=== PATIENT | male | born 1960 | race Caucasian/White ===

== ENCOUNTER 2018-06-11 17:12 | Inpatient (IN) | payer BC ==
[~2018-06-11] VITALS: Ht 182.9 cm; Wt 95.8 kg
[2018-06-11 20:00] VITALS: BP 128/81
[2018-06-11] MEDS: LEVOFLOXACIN 500MG/D5W 100ML 100 ML IV SCH (20:45)
[2018-06-11] MEDS: DEXTROSE 5%/0.45% SOD CHL 1,000 ML IV SCH (20:45)
[2018-06-11 21:28] LABS: BASOPHILS # (AUTO) 0.1 (0.0-0.1); BASOPHILS % 1.1 % (0.0-1.0); EOSINOPHILS # (AUTO) 0.3 (0.0-0.4); EOSINOPHILS % 4.4 % (0.0-6.0); HEMATOCRIT 47.8 % (38.2-49.6); HEMOGLOBIN 16.2 g/dL (14.0-18.0); LYMPHOCYTES # (AUTO) 1.8 (1.0-3.2); LYMPHOCYTES % 28.4 % (18.0-39.1); MEAN CORPUSCULAR HEMOGLOBIN 30.8 pg (28-32); MEAN CORPUSCULAR HGB CONC 33.9 g/dL (31-35); MEAN CORPUSCULAR VOLUME 90.9 fL (81-99); MONOCYTES # (AUTO) 0.7 (0.2-0.8); MONOCYTES % 11.5 % (4.4-11.3); NEUTROPHILS # (AUTO) 3.4 (2.1-6.9); PLATELET COUNT 345 x10e3/uL (140-360); RED BLOOD COUNT 5.26 x10e6/uL (4.3-5.7); RED CELL DISTRIBUTION WIDTH 12.6 % (11.7-14.4)
[2018-06-11 21:39] LABS: INR 0.94; PROTHROMBIN TIME 13.4 seconds (11.9-14.5)
[2018-06-11 21:40] LABS: PARTIAL THROMBOPLASTIN TIME 30.9 seconds (23.8-35.5)
[2018-06-11] MEDS: METRONIDAZOLE 500MG/NS 100ML 100 ML IV SCH (21:46)
[2018-06-11 21:48] LABS: ALBUMIN 3.8 g/dL (3.5-5.0); ALBUMIN/GLOBULIN RATIO 1.1 (0.8-2.0); ANION GAP 13.9 mmol/L (8-16); CALCIUM 10.1 mg/dL (8.4-10.2); CREATININE, SERUM 1.5 mg/dL (0.72-1.25); POTASSIUM 3.9 mmol/L (3.5-5.1)
[2018-06-11 23:20] VITALS: BP 112/65
[2018-06-11] MEDS ORDERED: ONDANSETRON HCL INJ 2 MG/ML VIAL IV PRN (23:45)
[2018-06-11] MEDS ORDERED: MORPHINE SULFATE 2 MG/ML SYR IV PRN (23:45)
[2018-06-12] VITALS (7 sets, daily range): BP systolic 100–165; BP diastolic 58–83
[2018-06-12] MEDS: METRONIDAZOLE 500MG/NS 100ML 100 ML IV SCH ×3 (05:50→22:21)
[2018-06-12] MEDS: DEXTROSE 5%/0.45% SOD CHL 1,000 ML IV SCH ×2 (05:50→16:19)
--- NOTE | 2018-06-12 07:28 | Consultation ---
DATE OF CONSULTATION: June 12, 2018 The patient is a 58-year-old male who developed abdominal pain about 4-5 days ago. Says he was home watching television and developed lower abdominal pain. He had recent blepharoplasty. Patient says the pain was in the lower abdomen and he had some feeling of constipation. Took a suppository and had some loose watery bowel movements. Pain persisted. Went to the emergency room and evaluation apparently revealed diverticulitis with microperforation. Patient says the pain is somewhat less. He has never had similar pains in the past. PAST MEDICAL HISTORY: Otherwise unremarkable. He denies chronic medical problems. HOME MEDICATIONS: None. ALLERGIES: NO KNOWN ALLERGIES. PAST SURGICAL HISTORY: Only previous surgery was knee surgery and the recent blepharoplasty. FAMILY HISTORY: Noncontributory. SOCIAL HISTORY: The patient does not smoke cigarettes or drink alcohol. REVIEW OF SYSTEMS: As stated above. He has not had any fever or weight loss. PHYSICAL EXAMINATION GENERAL: The patient is awake, alert and in no distress. VITALS: Normal. He is afebrile. He is not tachycardic. HEENT: Unremarkable. Sclerae are nonicteric. NECK: Has no masses. LUNGS: Equal breath sounds are clear bilaterally. CARDIAC: Regular rate and rhythm. Normal S1 and S2 without murmur, S3 or S4. There is no jugular venous distention. ABDOMEN: Tender in the left lower quadrant with localized signs of peritonitis. There is slight distention. There was no mass. There is no organomegaly. EXTREMITIES: Warm. There is no edema. Pulses are palpable. NEUROLOGIC: Intact. LAB TESTS: The white blood cell count is normal. Hemoglobin and hematocrit are normal. Chemistries with slightly elevated creatinine, otherwise normal. ASSESSMENT: A 58-year-old male with findings suggestive of acute diverticulitis with localized signs of peritonitis. At this point, I think the patient would best be treated with antibiotics. Hopefully, his symptoms will resolve without requiring surgery. Thank you for asking me to see Mr. Kasper. Job#: [id number] BIBIA[place]
[2018-06-12] MEDS: FAMOTIDINE 20 MG/2 ML VIAL IV SCH ×2 (09:02→16:37)
[2018-06-12] MEDS: ENOXAPARIN SOD INJ 40 MG/0.4 ML SYR SC SCH (16:37)
[2018-06-12] MEDS: LEVOFLOXACIN 500MG/D5W 100ML 100 ML IV SCH (20:30)
[2018-06-13] VITALS (7 sets, daily range): BP systolic 111–140; BP diastolic 56–94
[2018-06-13] MEDS: DEXTROSE 5%/0.45% SOD CHL 1,000 ML IV SCH ×2 (02:32→14:34)
[2018-06-13 05:33] LABS: BASOPHILS # (AUTO) 0.1 (0.0-0.1); BASOPHILS % 1.6 % (0.0-1.0); EOSINOPHILS # (AUTO) 0.3 (0.0-0.4); EOSINOPHILS % 6.7 % (0.0-6.0); HEMATOCRIT 46.4 % (38.2-49.6); HEMOGLOBIN 15.4 g/dL (14.0-18.0); LYMPHOCYTES # (AUTO) 1.4 (1.0-3.2); LYMPHOCYTES % 31.9 % (18.0-39.1); MEAN CORPUSCULAR HEMOGLOBIN 30.1 pg (28-32); MEAN CORPUSCULAR HGB CONC 33.2 g/dL (31-35); MEAN CORPUSCULAR VOLUME 90.8 fL (81-99); MONOCYTES # (AUTO) 0.6 (0.2-0.8); MONOCYTES % 12.3 % (4.4-11.3); NEUTROPHILS # (AUTO) 2.1 (2.1-6.9); NEUTROPHILS % 46.6 % (38.7-80.0); PLATELET COUNT 317 x10e3/uL (140-360); RED BLOOD COUNT 5.11 x10e6/uL (4.3-5.7); RED CELL DISTRIBUTION WIDTH 12.3 % (11.7-14.4)
[2018-06-13 05:59] LABS: ANION GAP 14.4 mmol/L (8-16); CALCIUM 8.9 mg/dL (8.4-10.2); CREATININE, SERUM 1.48 mg/dL (0.72-1.25); POTASSIUM 4.4 mmol/L (3.5-5.1)
[2018-06-13] MEDS: METRONIDAZOLE 500MG/NS 100ML 100 ML IV SCH ×4 (06:13→22:35)
[2018-06-13] MEDS: FAMOTIDINE 20 MG/2 ML VIAL IV SCH ×2 (09:00→17:41)
[2018-06-13] MEDS ORDERED: MORPHINE SULFATE INJ 4 MG/ML INJ IV PRN (11:00)
[2018-06-13] MEDS: ENOXAPARIN SOD INJ 40 MG/0.4 ML SYR SC SCH (17:41)
[2018-06-13] MEDS: LEVOFLOXACIN 500MG/D5W 100ML 100 ML IV SCH (20:08)
[2018-06-14] VITALS (7 sets, daily range): BP systolic 103–123; BP diastolic 62–76
[2018-06-14] MEDS: DEXTROSE 5%/0.45% SOD CHL 1,000 ML IV SCH ×2 (00:40→08:10)
[2018-06-14] MEDS: METRONIDAZOLE 500MG/NS 100ML 100 ML IV SCH ×2 (05:24→13:44)
[2018-06-14] MEDS: FAMOTIDINE 20 MG/2 ML VIAL IV SCH (08:20)
--- NOTE | 2018-06-14 11:48 | Progress Note ---
DATE: June 14, 2018 SUBJECTIVE: Patient reports significant improvement in abdominal pain. He ate solid food. He has not had any bowel movement so far. He is passing flatus. REVIEW OF SYSTEMS GENERAL: No fever or chills. RESPIRATORY: No cough or expectoration. CVS: No chest pain, palpitation. MEDICATIONS: Reviewed as per MAR, he is on intravenous metronidazole as well as levofloxacin along with other medications. PHYSICAL EXAMINATION VITAL SIGNS: Temperature 97.8, pulse 67, respirations 18, blood pressure 121/76, oxygen saturation 96% on room air. GENERAL: Not in any acute distress. HEENT: Oral mucosa is moist. ABDOMEN: Soft. Mild lower quadrant tenderness on deep palpation without rebound, rigidity, or guarding. Positive bowel sound. LABS: White count has come down to 4.48 from 6.33, hemoglobin 15.4, hematocrit 46.4, platelet count 317. Electrolytes normal. IMPRESSION: Acute diverticulitis with localized microperforation. Currently being treated conservatively. Dr. Ruby (surgeon) is also following the case. He has been allowed oral diet today. PLAN: Continue oral feedings. Patient is on morphine, but without any standing bowel regimen. We will put him on MiraLAX as well as senna with docusate daily as long as he is going to be using morphine. Patient will follow with my associate, Dr. Blackwood, in his clinic once he is discharged. Job#: [id number]
[2018-06-14] MEDS: ENOXAPARIN SOD INJ 40 MG/0.4 ML SYR SC SCH (16:18)
[2018-06-14] MEDS: LEVOFLOXACIN 500MG/D5W 100ML 100 ML IV SCH (20:15)
[2018-06-15] VITALS: BP 115/71
[2018-06-15 04:00] VITALS: BP 93/67
[2018-06-15] MEDS: METRONIDAZOLE 500MG/NS 100ML 100 ML IV SCH (06:11)
[2018-06-15 08:12] VITALS: BP 115/77
[2018-06-15 09:51] VITALS: BP 115/77
[2018-06-15] MEDS ORDERED: LEVAQUIN500 MG PO (12:43)
[2018-06-15] MEDS ORDERED: FLAGYL250 MG (12:43)
--- NOTE | 2018-06-15 13:19 | Discharge Summary ---
PRIMARY CARE DOCTOR: Dr. Bonita Reyes. FINAL DIAGNOSIS: Acute contained micro perforated diverticulitis. SECONDARY DIAGNOSIS: Stage 3 chronic kidney disease, stable. CONSULTANTS 1. Dr. Ruby, surgery. 2. Dr. Blackwood, GI. PROCEDURES/STUDIES PERFORMED: None. HISTORY: Per [facility] HOSPITAL COURSE: Patient had CT scan which shows microperforation. Patient was admitted, was put on IV Levaquin and Flagyl. Initially, he was made n.p.o. Subsequently, his diet was advance and he did well. Initially, he was on IV fluid as well. Patient does have creatinine of 1.5 and remained same after hydration. Patient was informed about this and he will have outpatient followup workup and monitoring. At this time, patient is stable for discharge home. I have discussed with Dr. Ruby. Patient will follow up with Dr. Blackwood in about 3 to 4 weeks for colonoscopy. Subsequently, he will follow up with Dr. Ruby for likely partial bowel resection. Patient was seen and examined today. I took 32 minutes total to discharge this patient. CONDITION ON DISCHARGE: Improved. DISCHARGE MEDICATIONS: Please see medication reconciliation form. GLO EVERETT M.D. Job#: [id number] TITA cc:DR. BONITA REYES
== END 2018-06-15 13:10 | disposition home or self-care (01) | DRG 392 ==
LOC: MED/SURG 19:31
PROVIDERS: ADMIT Internal Medicine; ATTEND Internal Medicine
DX: K57.80 Diverticulitis of intestine, part unspecified, with perforation and abscess without bleeding (principal); N17.9 Acute kidney failure, unspecified; I12.9 Hypertensive chronic kidney disease with stage 1 through stage 4 chronic kidney disease, or unspecified chronic kidney disease; N18.3 Chronic kidney disease, stage 3 (moderate)
CPT/HCPCS: 36415; 80048; 80053; 85025; 85610; 85730; 96360; J1650; J1956

== ENCOUNTER 2018-07-31 10:53 | Inpatient (IN) | payer BC ==
[2018-07-28 13:59] LABS: BASOPHILS # (AUTO) 0.1 (0.0-0.1); BASOPHILS % 1.5 % (0.0-1.0); EOSINOPHILS # (AUTO) 0.5 (0.0-0.4); EOSINOPHILS % 8.4 % (0.0-6.0); HEMATOCRIT 49.9 % (38.2-49.6); HEMOGLOBIN 16.6 g/dL (14.0-18.0); LYMPHOCYTES # (AUTO) 1.9 (1.0-3.2); MEAN CORPUSCULAR HEMOGLOBIN 30.7 pg (28-32); MEAN CORPUSCULAR HGB CONC 33.3 g/dL (31-35); MEAN CORPUSCULAR VOLUME 92.4 fL (81-99); MONOCYTES # (AUTO) 0.6 (0.2-0.8); MONOCYTES % 10.3 % (4.4-11.3); NEUTROPHILS # (AUTO) 2.7 (2.1-6.9); NEUTROPHILS % 46.1 % (38.7-80.0); PLATELET COUNT 248 x10e3/uL (140-360); RED CELL DISTRIBUTION WIDTH 13.2 % (11.7-14.4)
[2018-07-28 14:15] LABS: ANION GAP 13.4 mmol/L (8-16); BLOOD UREA NITROGEN 7 mg/dL (7-26); BUN/CREATININE RATIO 6 (6-25); CALCIUM 8.5 mg/dL (8.4-10.2); CARBON DIOXIDE 30 mmol/L (22-29); CHLORIDE 103 mmol/L (98-107); CREATININE, SERUM 1.23 mg/dL (0.72-1.25); EST GLOMERULAR FILTRATION RATE > 60 ML/MIN (60-); GLUCOSE 92 mg/dL (74-118); POTASSIUM 4.4 mmol/L (3.5-5.1); SODIUM 142 mmol/L (136-145)
[~2018-07-31] VITALS: Ht 182.9 cm; Wt 90.8 kg
[~2018-07-31 10:53] MED LIST: FLAGYL250 MG; LEVAQUIN500 MG PO
[2018-07-31] MEDS ORDERED: CEFOXITIN SOD 1 GM VIAL ONE (11:27)
[2018-07-31] MEDS ORDERED: BUPIVACAINE HCL 0.5% INJ 30 ML VIAL INJ ONE (12:11)
[2018-07-31] MEDS ORDERED: BACITRACIN 50,000 UNIT VIAL ONE (12:11)
[2018-07-31] MEDS ORDERED: ACETAMINOPHEN 1000 MG/100 ML IV PRN (13:45)
[2018-07-31] MEDS ORDERED: HYDROMORPHONE 0.2MG/ML-SOD CHL 30ML PCA SYRINGE IV PRN (13:45)
[2018-07-31] MEDS ORDERED: ONDANSETRON HCL INJ 2 MG/ML VIAL IV PRN (13:45)
[2018-07-31] MEDS ORDERED: DIPHENHYDRAMINE HCL INJ 50 MG/ML VIAL IM PRN (13:45)
[2018-07-31] MEDS ORDERED: KETOROLAC TROMETHAMINE 30 MG/ML VIAL IV PRN (13:45)
[2018-07-31] MEDS ORDERED: NALOXONE HCL INJ 0.4 MG/ML AMP IV PRN (13:45)
[2018-07-31] MEDS ORDERED: HYDROMORPHONE 2MG/ML 2 MG/ML ML ONE (13:58)
[2018-07-31] MEDS ORDERED: HYDROMORPHONE 0.2MG/ML-SOD CHL 30ML PCA SYRINGE IV ONE (14:03)
--- NOTE | 2018-07-31 14:56 | Operative Report ---
DATE OF PROCEDURE: July 31, 2018 PREOPERATIVE DIAGNOSIS: Sigmoid diverticulitis. POSTOPERATIVE DIAGNOSIS: Sigmoid diverticulitis. PROCEDURE PERFORMED: Laparoscopic assisted sigmoid colon resection. HOTEL YARDPERSON: None. ANESTHESIA: General endotracheal. INDICATIONS AND FINDINGS: The patient is a 58-year-old male who was hospitalized a little more than a month ago with severe sigmoid diverticulitis. He had some persistent pain in the area. At surgery patient was found to have an area of inflammation in the mid sigmoid colon with a small amount of purulent fluid around it. The colon proximal and distal to this had some mild diverticulosis but no inflammation. Approximately 20 cm of colon was resected. TECHNIQUE: After adequate general endotracheal anesthesia, patient in supine position, the abdomen was prepped and draped in sterile fashion with [place] solution. Skin just below the umbilicus was infiltrated with 1/2 percent Marcaine. Incision was made. The abdominal wall was elevated, and a Veress needle was introduced. Pneumoperitoneum was then created. A 10 mm trocar and cannula was then passed through this wound. The laparoscopic camera was introduced. Initial laparoscopy revealed inflammatory process involving the mid sigmoid colon. A 5 mm trocar and cannula was placed in the epigastrium, and a 5 mm trocar and cannula was placed in the right lower quadrant. The colon which was adherent to the abdominal wall was freed from the adhesions. There was some purulent fluid around the colon, and it appeared thickened and inflamed. Once this was free, the colon was mobilized by dividing the peritoneal attachments. This was mobilized all the way up to the splenic flexure and the distal colon was mobilized all the way down to the peritoneal reflection until the colon was completely free. The left ureter was identified and preserved. Once the colon was free, an incision was made in the lower midline suprapubically and the peritoneal cavity was entered. The colon was then delivered up into the wound. The area of inflammation easily came up into the wound. The colon distal to this had mild diverticulosis but no inflammation. Approximately 5 cm proximal to the area of inflammation the colon was divided with a MIKO stapler, and the colon distal to this, which was in the distal sigmoid colon, was also divided with a MIKO stapler. Mesentery was then divided with a LigaSure device and the specimen removed. About 20 cm of colon was removed. Anastomosis was then made between the proximal and distal colon with a MIKO stapler and TL-60 stapler. There was no tension on the colon. Hemostasis was seen to be adequate. The colon was then returned to the peritoneal cavity. It was inspected for hemostasis, which was seen to be adequate. The peritoneal cavity was then irrigated with saline. All fluid aspirated. Inspected for hemostasis, which was seen to be adequate. The lower midline fascia was then closed with a running suture of number 1 PDS. Fascia in the umbilical wound was closed with 0 Vicryl. Subcutaneous tissue in each wound was irrigated with saline. Skin to all wounds was closed with vasiliy. A sterile dressing was applied to each wound. The patient tolerated the procedure well. Estimated blood loss was 50 mL. There were no complications. All counts were correct. The patient was taken to the recovery room in satisfactory condition. Job#: [id number] EV cc:Quan ENG MD JOHN D. KIRKWOOD, DO
[2018-07-31 16:48] VITALS: BP 139/84
[2018-07-31] MEDS: DEXTROSE 5%/LACTATED RINGERS 1,000 ML IV SCH ×2 (17:04→21:45)
[2018-07-31] MEDS: CEFOXITIN SODIUM 2 G/VIAL IV SCH (17:04)
[2018-07-31] MEDS ORDERED: CEFOXITIN 2GM/ D5W 50ML 50 ML IV SCH (18:00)
[2018-07-31] MEDS ORDERED: FENTANYL CITRATE/PF 100MCG/2 ML INJ ONE (19:24)
[2018-07-31] MEDS ORDERED: MIDAZOLAM HCL 2 MG/2 ML VIAL ONE (19:24)
[2018-07-31] MEDS ORDERED: LIDOCAINE HCL 2% LOCAL INJ 5 ML SDV VIAL INJ ONE (19:47)
[2018-07-31] MEDS ORDERED: ROCURONIUM BROMIDE 10 MG/ML 5ML VIAL ONE (19:47)
[2018-07-31] MEDS ORDERED: SEVOFLURANE INHAL SOLN 250 ML PEN BTL ONE (19:47)
[2018-07-31] MEDS ORDERED: PROPOFOL IV EMULSION 10 MG/ML 20 ML VIAL ONE (19:47)
[2018-07-31] MEDS ORDERED: GLYCOPYRROLATE INJ 1MG/ 5 ML SYR ONE (19:47)
[2018-07-31] MEDS ORDERED: DEXAMETHASONE SOD PHOS INJ 4 MG/ML VIAL ONE (19:47)
[2018-07-31] MEDS ORDERED: NEOSTIGMINE 5 MG/5ML SYR ONE (19:47)
[2018-07-31] MEDS ORDERED: PHENYLEPHRINE HCL 1% 10 MG/ML VIAL ONE (19:47)
[2018-07-31] MEDS ORDERED: ONDANSETRON HCL INJ 2 MG/ML VIAL ONE (19:47)
[2018-07-31] MEDS ORDERED: ACETAMINOPHEN 1000 MG/100 ML IV ONE (19:47)
[2018-08-01] VITALS (8 sets, daily range): BP systolic 106–145; BP diastolic 59–91
[2018-08-01] MEDS: CEFOXITIN SODIUM 2 G/VIAL IV SCH ×3 (00:30→12:47)
[2018-08-01] MEDS: DEXTROSE 5%/LACTATED RINGERS 1,000 ML IV SCH ×3 (05:44→22:32)
[2018-08-01 05:48] LABS: BASOPHILS % 0.3 % (0.0-1.0); EOSINOPHILS % 0.1 % (0.0-6.0); HEMATOCRIT 45.1 % (38.2-49.6); HEMOGLOBIN 15.1 g/dL (14.0-18.0); LYMPHOCYTES # (AUTO) 1.2 (1.0-3.2); LYMPHOCYTES % 10.7 % (18.0-39.1); MEAN CORPUSCULAR HEMOGLOBIN 30.8 pg (28-32); MEAN CORPUSCULAR HGB CONC 33.5 g/dL (31-35); MEAN CORPUSCULAR VOLUME 91.9 fL (81-99); MONOCYTES # (AUTO) 1.2 (0.2-0.8); MONOCYTES % 10.9 % (4.4-11.3); NEUTROPHILS # (AUTO) 8.8 (2.1-6.9); NEUTROPHILS % 77.6 % (38.7-80.0); PLATELET COUNT 260 x10e3/uL (140-360); RED BLOOD COUNT 4.91 x10e6/uL (4.3-5.7); RED CELL DISTRIBUTION WIDTH 13.3 % (11.7-14.4)
[2018-08-01 06:13] LABS: ANION GAP 13.7 mmol/L (8-16); CREATININE, SERUM 1.27 mg/dL (0.72-1.25); POTASSIUM 4.7 mmol/L (3.5-5.1)
--- NOTE | 2018-08-01 13:12 | Consultation ---
DATE OF CONSULTATION: August 01, 2018 INTERNAL MEDICINE CONSULTATION REASON FOR CONSULTATION: Chronic kidney disease. HISTORY OF PRESENT ILLNESS: This is a 58-year-old male known to me from 2 months ago when he was admitted with perforated sigmoid diverticulitis. Patient did well with IV antibiotics, and now he is postop day 1 for a laparoscopic assisted sigmoidectomy. At that time patient was found to have what was thought to be chronic kidney disease with a GFR of 45 to 50. Currently patient is ambulating, is on a BUGGY RUNNER Dilaudid pump, denies chest pain. No shortness of breath, no nausea, no vomiting. He is passing flatus. PAST MEDICAL AND SURGICAL HISTORY 1. Chronic kidney disease, likely stage 2 or 3. 2. Recent perforated diverticulitis about 2 months ago. 3. No previous internal organ surgery. FAMILY HISTORY: He was adopted. SOCIAL HISTORY: Some social alcohol. ALLERGIES: NONE. MEDICATIONS: Please see medication reconciliation form. PHYSICAL EXAMINATION VITAL SIGNS: Temperature 98.0, pulse 87, respiratory rate 20, blood pressure 111/68. IN GENERAL: No acute distress. SKIN: No rash. HEENT: Oropharynx is clear. Anicteric. NECK: Supple. LUNGS: Clear. HEART: Regular rate and rhythm. Normal S1 and S2. GI: Abdomen soft. Decreased bowel sounds. : Deferred. MUSCULOSKELETAL: Painless range of motion. NEUROLOGICALLY: Alert and oriented x3. Cranial nerves 2-12 intact. PSYCHIATRICALLY: No hallucination. LABORATORY-SHARP: White count 11, hemoglobin 15, platelet count 260. Creatinine 1.27, sodium 135, and GFR is 58. However, his preop creatinine was 1.3 with GFR greater than 60. ASSESSMENT AND PLAN 1. Likely stage 2 to 3 chronic kidney disease, currently at baseline. The patient understands that he will need close monitoring after he is discharged. 2. Postoperative day number 1 for laparoscopic assisted sigmoidectomy. Continue Dilaudid BUGGY RUNNER pump, IV fluid. Patient currently still n.p.o. Will wait for bowel function to return. 3. Gastrointestinal/deep vein thrombosis prophylaxis. Will start Pepcid IV and sequential compression devices only. No chemicals due to recent surgery. Thank you very much for this consultation. Will continue to follow with you. Please call with any questions. Job#: [id number] EV
[2018-08-01] MEDS: FAMOTIDINE 20 MG/2 ML VIAL IV SCH (17:09)
[2018-08-02] VITALS (8 sets, daily range): BP systolic 114–151; BP diastolic 56–88
[2018-08-02 05:49] LABS: HEMATOCRIT 43.8 % (38.2-49.6); HEMOGLOBIN 14.3 g/dL (14.0-18.0); MEAN CORPUSCULAR HEMOGLOBIN 30.8 pg (28-32); MEAN CORPUSCULAR HGB CONC 32.6 g/dL (31-35); MEAN CORPUSCULAR VOLUME 94.2 fL (81-99); PLATELET COUNT 218 x10e3/uL (140-360); RED BLOOD COUNT 4.65 x10e6/uL (4.3-5.7); RED CELL DISTRIBUTION WIDTH 13.4 % (11.7-14.4)
[2018-08-02 06:11] LABS: ANION GAP 11.2 mmol/L (8-16); CALCIUM 7.9 mg/dL (8.4-10.2); CREATININE, SERUM 1.31 mg/dL (0.72-1.25); POTASSIUM 4.2 mmol/L (3.5-5.1)
[2018-08-02] MEDS: DEXTROSE 5%/LACTATED RINGERS 1,000 ML IV SCH ×3 (06:13→23:24)
[2018-08-02 06:53] LABS: EOSINOPHILS % (MANUAL) 2 % (0-7); LYMPHOCYTES % (MANUAL) 32 % (19-48); MONOCYTES % (MANUAL) 1 % (3.4-9.0); NEUTROPHILS % (MANUAL) 65 % (40-74); PLATELET ESTIMATE ADEQUATE; PLATELET MORPHOLOGY COMMENT NORMAL; RBC MORPHOLOGY COMMENT NORMAL
[2018-08-02] MEDS: FAMOTIDINE 20 MG/2 ML VIAL IV SCH (08:55)
[2018-08-02] MEDS: HYDROMORPHONE 0.2MG/ML-SOD CHL 30ML PCA SYRINGE IV PRN ×2 (10:29→22:34)
[2018-08-02] MEDS: ACETAMINOPHEN/CODEINE 300MG - 30MG TAB PO PRN (21:07)
[2018-08-03 00:43] VITALS: BP 123/74
[2018-08-03] MEDS: ACETAMINOPHEN/CODEINE 300MG - 30MG TAB PO PRN (04:40)
[2018-08-03] MEDS: DEXTROSE 5%/LACTATED RINGERS 1,000 ML IV SCH ×2 (05:45→13:48)
[2018-08-03 06:07] VITALS: BP 120/77
[2018-08-03 08:00] VITALS: BP 134/94
[2018-08-03 15:45] VITALS: BP 137/77
[2018-08-03 17:13] VITALS: BP 121/74
[2018-08-03 20:00] VITALS: BP 109/57
[2018-08-04] VITALS (8 sets, daily range): BP systolic 116–139; BP diastolic 62–94
[2018-08-04] MEDS: DEXTROSE 5%/LACTATED RINGERS 1,000 ML IV SCH (08:32)
[2018-08-05] VITALS: BP 101/67
[2018-08-05] MEDS: DEXTROSE 5%/LACTATED RINGERS 1,000 ML IV SCH (03:39)
[2018-08-05 04:00] VITALS: BP 119/74
--- NOTE | 2018-08-05 07:50 | Discharge Summary ---
ADMITTING DIAGNOSIS: Sigmoid diverticulitis. DISCHARGE DIAGNOSIS: Sigmoid diverticulitis. PRINCIPAL PROCEDURE: Sigmoid colon resection. HISTORY OF PRESENT ILLNESS: The patient is a 58-year-old male admitted to the hospital with severe abdominal pain. About a month prior to this admission, he had severe sigmoid diverticulitis. HOSPITAL COURSE: The patient was admitted to the hospital after bowel prep as an outpatient. He had a sigmoid colon resection. Postoperatively, the patient was stable. He was started on a liquid diet on the 1st postoperative day. The diet was advanced. Bowel function returned to normal. He was discharged home on the 5th postoperative day. At the time of discharge, he was afebrile, tolerating a diet, passing flatus, had a bowel movement. The wounds were clean. Discharge medication was [place]. He will follow up with Dr. Ruby 1 week after discharge. Discharged home in satisfactory condition and on a regular diet. BIRDIE RUBY MD Job#: [id number]
[2018-08-05 09:40] VITALS: BP 118/57
[2018-08-05 10:46] VITALS: BP 122/78
[2018-08-05] MEDS ORDERED: NORCO 5-325 TA1 EACH PO (11:03)
== END 2018-08-05 11:17 | disposition home or self-care (01) | DRG 329 ==
LOC: OR 10:53 → PACU V 14:00 → MED/SURG 15:13
PROVIDERS: ADMIT Surgery; ATTEND Surgery
PROC: 0DTN0ZZ Resection of Sigmoid Colon, Open Approach (ICD-10-PCS; principal; 2018-07-31 12:35)
DX: K57.32 Diverticulitis of large intestine without perforation or abscess without bleeding (principal); A41.9 Sepsis, unspecified organism; E87.1 Hypo-osmolality and hyponatremia; M86.9 Osteomyelitis, unspecified; G89.18 Other acute postprocedural pain; E11.69 Type 2 diabetes mellitus with other specified complication; E11.51 Type 2 diabetes mellitus with diabetic peripheral angiopathy without gangrene; Z79.4 Long term (current) use of insulin; E11.22 Type 2 diabetes mellitus with diabetic chronic kidney disease; N18.3 Chronic kidney disease, stage 3 (moderate)
CPT/HCPCS: 36415; 80048; 85007; 85025; 85027; 88307; 93005; J0694; J1100; J2001; J2250; J2370; J2405